=== PATIENT | female | born 1985 | race Asian ===

== ENCOUNTER 2017-12-21 01:42 | Emergency (ER) | payer OTHER, SELFPAY ==
[~2017-12-21] VITALS: Ht 157.5 cm; Wt 50.3 kg
[2017-12-21 01:43] VITALS: BP 115/80
[2017-12-21] MEDS ORDERED: IBUPROFEN 200 MG TABLET ONE (02:21)
[2017-12-21] MEDS ORDERED: DEXAMETHASONE 4 MG TABLET ONE (02:21)
[2017-12-21] MEDS ORDERED: DEXAMETHASONE 4 MG TABLET PO ONE (02:30)
[2017-12-21] MEDS ORDERED: PLEASE ENTER ALLERGIES MC SCH (02:30)
[2017-12-21] MEDS ORDERED: IBUPROFEN 200 MG TABLET PO ONE (02:30)
[2017-12-22] MEDS ORDERED: PREN1COM3 PO (21:37)
[2017-12-22] MEDS ORDERED: CHOL100015 PO (21:37)
== END 2017-12-21 02:56 | disposition home or self-care (01) ==
LOC: ED 02:50
DX: J03.00 Acute streptococcal tonsillitis, unspecified (principal)
CPT/HCPCS: 87081; 87880; 99284

== ENCOUNTER 2017-12-22 20:58 | Emergency (ER) | payer OTHER ==
[~2017-12-22] VITALS: Ht 157.5 cm; Wt 50.8 kg
[2017-12-22 21:01] VITALS: BP 119/82
[2017-12-22] MEDS ORDERED: SODIUM CHLORIDE 0.9% 1,000ML IVBOLUS ONE (21:30)
[2017-12-22] MEDS ORDERED: KETOROLAC 30 MG/1 ML IVPush ONE (21:30)
[2017-12-22] MEDS ORDERED: SODIUM CHLORIDE FLUSH 10ML SYR IVF ONE (21:30)
[2017-12-22] MEDS ORDERED: CHOL100015 PO (21:37)
[2017-12-22] MEDS ORDERED: PREN1COM3 PO (21:37)
[2017-12-22] MEDS ORDERED: KETOROLAC 30 MG/1 ML ONE (21:48)
[2017-12-22 21:49] LABS: BASOPHILS # (AUTO) 0.03 x10^3/uL (0-0.1); BASOPHILS % (AUTO) 0 % (0-1); EOSINOPHILS # (AUTO) 0.03 x10^3/uL (0-0.4); EOSINOPHILS % (AUTO) 0 % (1-7); LYMPHOCYTES % (AUTO) 13 % (22-44); MD NO; MEAN CORPUSCULAR HEMOGLOBIN 28.1 pg (27.0-34.8); MEAN CORPUSCULAR HGB CONC 33.3 g/dL (32.4-35.8); MEAN CORPUSCULAR VOLUME 84.5 fL (80-100); MEAN PLATELET VOLUME 7.6 fL (7.4-10.4); MONOCYTES # (AUTO) 0.79 x10^3/uL (0.2-0.8); MONOCYTES % (AUTO) 7 % (2-9); NEUTROPHILS # (AUTO) 9.69 x10^3/uL (1.8-6.8); NEUTROPHILS % (AUTO) 80 % (42-75); PLATELET COUNT 284 x10^3/uL (130-400); RED BLOOD COUNT 4.59 x10^6/uL (3.82-5.3); RED CELL DISTRIBUTION WIDTH 13.8 % (9.6-15.2)
[2017-12-22 21:59] LABS: ALBUMIN 3.9 g/dL (3.4-5.0); ANION GAP 8 mmol/L (5-15); CALCIUM 8.9 mg/dL (8.5-10.1); CHLORIDE 106 mmol/L (98-107); CREATININE 0.61 mg/dL (0.55-1.02)
[2017-12-22] MEDS ORDERED: OMNIPAQUE 350 MG/ML, 100ML BOTTLE ONE (22:36)
== END 2017-12-22 23:50 | disposition home or self-care (01) ==
LOC: ED 21:53
DX: J36 Peritonsillar abscess (principal)
CPT/HCPCS: 36415; 70491; 80048; 82040; 85025; 96374; 99285; J1885; J7030; Q9967

== ENCOUNTER 2017-12-24 01:01 | Emergency (ER) | payer OTHER ==
[~2017-12-24] VITALS: Ht 157.5 cm; Wt 50.0 kg
[~2017-12-24 01:01] MED LIST: CHOL100015 PO; PREN1COM3 PO
[2017-12-24 01:08] VITALS: BP 105/74
[2017-12-24] MEDS ORDERED: BENZOCAINE AEROSOL SPRAY 20%, 60ML ONE (01:14)
[2017-12-24] MEDS ORDERED: AMOX1TAB64 PO (01:42)
[2017-12-24] MEDS ORDERED: DEXAMETHASONE 4 MG/ML, 1ML ONE (01:44)
[2017-12-24] MEDS ORDERED: NORCO (01:51)
[2017-12-24] MEDS ORDERED: DEXAMETHASONE 4 MG/ML, 1ML IM ONE (02:00)
[2017-12-24] MEDS ORDERED: DEXAMETHASONE 4 MG/ML, 1ML IVPush ONE (02:00)
== END 2017-12-24 02:30 | disposition home or self-care (01) ==
LOC: ED 02:10
DX: J36 Peritonsillar abscess (principal)
CPT/HCPCS: 42700; 96372; 99283; J1100

== ENCOUNTER 2019-11-02 18:38 | Outpatient (CLI) | payer OTHER ==
[~2019-11-02] VITALS: Ht 157.5 cm; Wt 61.8 kg
[~2019-11-02 18:38] MED LIST changes: +AMOX1TAB64 PO; +NORCO
[2019-11-02 19:24] VITALS: BP 125/72
== END 2019-11-02 21:11 | disposition home or self-care (01) ==
LOC: LDOP 18:38
PROVIDERS: ATTEND Obstetrics & Gynecology Maternal & Fetal Medicine
DX: O26.893 Other specified pregnancy related conditions, third trimester (principal); R10.9 Unspecified abdominal pain; Z3A.37 37 weeks gestation of pregnancy
CPT/HCPCS: 59025; 99211; G0463

== ENCOUNTER 2019-11-14 21:17 | Inpatient (IN) | payer OTHER ==
[~2019-11-14] VITALS: Ht 157.5 cm; Wt 62.0 kg
[2019-11-14] MEDS ORDERED: LACTATED RINGERS 1,000 ML IV SCH (21:30)
[2019-11-14] MEDS ORDERED: FENTANYL PF 100 MCG/2ML IV PRN (21:30)
[2019-11-14] MEDS ORDERED: CALCIUM CARBONATE 500 MG TAB.CHEW PO PRN (21:30)
[2019-11-14] MEDS ORDERED: TERBUTALINE 1 MG/ML, 1ML SQ PRN (21:30)
[2019-11-14] MEDS ORDERED: FENTANYL PF 100 MCG/2ML IVPush PRN (21:30)
[2019-11-14] MEDS ORDERED: TERBUTALINE 1 MG/ML, 1ML IVPush PRN (21:30)
[2019-11-14] MEDS ORDERED: ONDANSETRON 2MG/ML, 2ML IVPush PRN (21:30)
[2019-11-14] MEDS ORDERED: PENICILLIN GK 5,000,000 UNITS in DEXTROSE 5% 100 ML IVPB ONE (21:30)
[2019-11-14] MEDS ORDERED: OXYTOCIN 30U/ 0.9% NaCL 500ML 500 ML IV ONE (21:30)
[2019-11-14] MEDS ORDERED: LIDOCAINE 1%, 20ML ONE (21:42)
[2019-11-14] MEDS ORDERED: OXYTOCIN 30U/ 0.9% NaCL 500ML 500 ML ONE (21:42)
[2019-11-14] MEDS ORDERED: NEWBORN KIT ONE (21:42)
[2019-11-14] MEDS ORDERED: MISOPROSTOL 200 MCG TABLET ONE (21:43)
[2019-11-14 22:00] VITALS: BP 118/73
[2019-11-14] MEDS ORDERED: PENICILLIN GK 2,500,000 UNITS in DEXTROSE 5% 100 ML IVPB SCH (22:00)
[2019-11-14 22:18] LABS: BASOPHILS # (AUTO) 0.05 x10^3/uL (0-0.1); BASOPHILS % (AUTO) 1 % (0-1); EOSINOPHILS # (AUTO) 0.06 x10^3/uL (0-0.4); EOSINOPHILS % (AUTO) 1 % (1-7); LYMPHOCYTES # (AUTO) 1.69 x10^3/uL (1-3.4); LYMPHOCYTES % (AUTO) 23 % (22-44); MD NO; MEAN CORPUSCULAR HGB CONC 32.1 g/dL (32.4-35.8); MEAN CORPUSCULAR VOLUME 80.9 fL (80-100); MONOCYTES # (AUTO) 0.44 x10^3/uL (0.2-0.8); MONOCYTES % (AUTO) 6 % (2-9); NEUTROPHILS # (AUTO) 5.06 x10^3/uL (1.8-6.8); NEUTROPHILS % (AUTO) 69 % (42-75); PLATELET COUNT 294 x10^3/uL (130-400); RED CELL DISTRIBUTION WIDTH 16.5 % (9.6-15.2)
[2019-11-14] MEDS ORDERED: FENTANYL PF 100 MCG/2ML ONE ×2 (22:47→23:59)
[2019-11-14] MEDS ORDERED: ONDANSETRON 2MG/ML, 2ML ONE (23:42)
[2019-11-15] MEDS ORDERED: OXYTOCIN 30U/ 0.9% NaCL 500ML 500 ML IV PRN
[2019-11-15] MEDS ORDERED: OXYTOCIN 30U/ 0.9% NaCL 500ML 500 ML ONE (01:38)
[2019-11-15] MEDS: OXYTOCIN 30U/ 0.9% NaCL 500ML 500 ML IV SCH ×3 (02:13→22:04)
[2019-11-15] MEDS ORDERED: ACETAMINOPHEN 325 MG TABLET PO PRN (02:30)
[2019-11-15] MEDS ORDERED: MISOPROSTOL 200 MCG TABLET PR PRN (02:30)
[2019-11-15] MEDS ORDERED: IBUPROFEN 800 MG TABLET PO PRN (02:30)
[2019-11-15] MEDS ORDERED: OXYcodone/APAP 5/325MG TABLET PO PRN (02:30)
[2019-11-15] MEDS ORDERED: HYDROcodone/APAP 5/325 TABLET PO PRN (02:30)
[2019-11-15] MEDS ORDERED: ONDANSETRON 2MG/ML, 2ML IV PRN (02:30)
[2019-11-15] MEDS ORDERED: BISACODYL 10 MG SUPP PR PRN (02:30)
[2019-11-15] MEDS ORDERED: RHOGAM FROM BLOOD BANK 1 NOTE EA IM/IV ONE (02:30)
[2019-11-15 02:40] VITALS: BP 107/71
[2019-11-15 05:05] VITALS: BP 110/75
[2019-11-15] MEDS: DOCUSATE 100 MG CAPSULE PO PRN ×2 (08:22→19:55)
[2019-11-15] MEDS: PRENATAL VIT/IRON/FA 1 EACH TABLET PO SCH (08:22)
[2019-11-15 08:32] VITALS: BP 96/64
[2019-11-15 08:58] LABS: MEAN CORPUSCULAR VOLUME 81.3 fL (80-100); MEAN PLATELET VOLUME 7.4 fL (7.4-10.4); PLATELET COUNT 257 x10^3/uL (130-400); RED BLOOD COUNT 4.08 x10^6/uL (3.82-5.3); RED CELL DISTRIBUTION WIDTH 16.5 % (9.6-15.2)
[2019-11-15 09:23] LABS: BASOPHILS # (AUTO) 0.01 x10^3/uL (0-0.1); BASOPHILS % (AUTO) 0 % (0-1); EOSINOPHILS # (AUTO) 0.01 x10^3/uL (0-0.4); EOSINOPHILS % (AUTO) 0 % (1-7); LYMPHOCYTES # (AUTO) 1.16 x10^3/uL (1-3.4); LYMPHOCYTES % (AUTO) 8 % (22-44); MD SCAN; MONOCYTES # (AUTO) 0.75 x10^3/uL (0.2-0.8); MONOCYTES % (AUTO) 5 % (2-9); NEUTROPHILS # (AUTO) 13.68 x10^3/uL (1.8-6.8); NEUTROPHILS % (AUTO) 88 % (42-75)
[2019-11-15 12:15] VITALS: BP 104/69
[2019-11-15 16:22] VITALS: BP 99/71
[2019-11-15 20:01] VITALS: BP 96/64
[2019-11-16 07:45] VITALS: BP 110/80
[2019-11-16] MEDS: PRENATAL VIT/IRON/FA 1 EACH TABLET PO SCH (07:50)
[2019-11-16] MEDS: DOCUSATE 100 MG CAPSULE PO PRN (07:50)
[2019-11-16] MEDS ORDERED: IBUP-1223 PO (08:26)
[2019-11-16] MEDS ORDERED: DOCU-131 PO (08:26)
== END 2019-11-16 10:45 | disposition home or self-care (01) | DRG 807 ==
LOC: LDOP 21:17 → LDIP 21:29 → 2NW 11-15 02:30
PROVIDERS: ADMIT Obstetrics & Gynecology Maternal & Fetal Medicine; ATTEND Obstetrics & Gynecology Maternal & Fetal Medicine
PROC: 10E0XZZ Delivery of Products of Conception, External Approach (ICD-10-PCS; principal; 2019-11-15)
PROC: 0HQ9XZZ Repair Perineum Skin, External Approach (ICD-10-PCS; 2019-11-15)
DX: O99.824 Streptococcus B carrier state complicating childbirth (principal); Z37.0 Single live birth; Z3A.39 39 weeks gestation of pregnancy; O70.0 First degree perineal laceration during delivery
CPT/HCPCS: 36415; 85025; 86592; 86850; 86900; G0378; J2405; J2540; J3010; J2590; J7120